=== PATIENT | male | born 1960 | race Two or more races ===

== ENCOUNTER 2018-09-12 13:15 | Emergency (ER) | payer OTHER ==
[~2018-09-12] VITALS: Ht 172.7 cm; Wt 103.9 kg
[~2018-09-12 13:15] MED LIST: DOXYCYCLINE HY100 M1 PO; KETO10TA2 PO; NEXIUM20 MG/PACK PO; ORPH100T PO; SYMAX0.125 MG/T PO; UROCIT-K15 MEQ
[2018-09-12] MEDS ORDERED: ZYRTEC10 M3 (14:26)
[2018-09-12] MEDS ORDERED: ENALAPRIL MALEAT5 MG PO (16:42)
== END 2018-09-12 16:48 | disposition home or self-care (01) ==
LOC: ER 13:15
DX: R03.0 Elevated blood-pressure reading, without diagnosis of hypertension (principal); G47.30 Sleep apnea, unspecified

== ENCOUNTER 2018-09-13 10:57 | Emergency (ER) | payer OTHER ==
[~2018-09-13] VITALS: Ht 172.7 cm; Wt 104.3 kg
[~2018-09-13 10:57] MED LIST changes: +ENALAPRIL MALEAT5 MG PO; +ZYRTEC10 M3
== END 2018-09-13 12:47 | disposition home or self-care (01) ==
LOC: ER 10:57
DX: I10 Essential (primary) hypertension (principal); F06.4 Anxiety disorder due to known physiological condition

== ENCOUNTER 2018-10-11 16:59 | Emergency (ER) | payer OTHER ==
[~2018-10-11] VITALS: Ht 172.7 cm; Wt 100.2 kg
[2018-10-11] MEDS ORDERED: VISTARIL25 MG (17:17)
[2018-10-11] MEDS ORDERED: SINGULAIR4 M1 (17:17)
[2018-10-11] MEDS ORDERED: UROCIT-K10 MEQ (17:17)
== END 2018-10-12 10:15 | disposition home or self-care (01) ==
LOC: ER 16:59
DX: N20.0 Calculus of kidney (principal); N39.0 Urinary tract infection, site not specified; Z90.5 Acquired absence of kidney

== ENCOUNTER 2019-08-01 07:00 | Day surgery (SDC) | payer OTHER ==
[~2019-08-01 07:00] MED LIST changes: +SINGULAIR4 M1; +UROCIT-K10 MEQ; +VISTARIL25 MG
== END 2019-08-01 10:37 | disposition home or self-care (01) ==
LOC: AMB-ENDOS 07:00
DX: K62.89 Other specified diseases of anus and rectum (principal); K64.8 Other hemorrhoids

== ENCOUNTER 2021-03-04 09:50 | Outpatient (CLI) | payer OTHER | END 2021-03-04 14:28 | disposition home or self-care (01) | LOC: SONOGRAMA 09:50 | PROVIDERS: ATTEND Pathology Anatomic Pathology & Clinical Pathology | DX: E04.2 Nontoxic multinodular goiter (principal) ==